=== PATIENT | male | born 1995 | race Caucasian/White ===

== ENCOUNTER 2016-08-28 07:44 | Emergency (ER) | payer MEDICAID ==
[~2016-08-28] VITALS: Ht 172.7 cm; Wt 54.4 kg
[2016-08-28] MEDS ORDERED: ONDANSETRON 4MG ODT PO STA (08:09)
[2016-08-28 08:45] LABS: CLARITY URINE TURBID (CLEAR); COLOR URINE YELLOW (YELLOW); GLUCOSE URINE NEGATIVE (NEGATIVE); KETONES URINE NEGATIVE (NEGATIVE); LEUKOCYTE ESTERASE URINE 3+ (NEGATIVE); NITRITE URINE NEGATIVE (NEGATIVE); OCCULT BLOOD URINE 1+ (NEGATIVE); PH URINE 6.5 (4.5-8.0); PROTEIN URINE 1+ (NEGATIVE); SPECIFIC GRAVITY URINE 1.014 (1.005-1.030)
[2016-08-28 08:50] LABS: BASOPHILS % 0.4 % (0.0-2.0); EOSINOPHILS % 0.3 % (0.0-5.0); LYMPHOCYTES % 10.5 % (20.0-50.0); MEAN CORPUSCULAR HEMOGLOBIN 16.5 pg (28.0-32.0); MEAN CORPUSCULAR HGB CONC 27.8 g/dL (31.0-37.0); MEAN CORPUSCULAR VOLUME 59.3 fL (80.0-94.0); MEAN PLATELET VOLUME 6.8 fl (7.4-10.4); MONOCYTES % 8.8 % (2.0-8.0); PLATELET 688 x1000/uL (130-400); RED BLOOD CELL COUNT 3.44 mill/uL (4.7-6.1); RED CELL DISTRIBUTION WIDTH 21.5 % (11.6-14.6); WHITE BLOOD COUNT 11.9 x1000/uL (4.5-11.0)
[2016-08-28 08:53] LABS: CHLORIDE 103 mEq/L (98-107); INDEX HEMOLYSI 1 (1-3); INDEX ICTERIC 1 (1-4); INDEX LIPEMIC 1 (1-3)
[2016-08-28 08:55] LABS: INR 1.1; PROTHROMBIN TIME 11.6 sec
[2016-08-28 08:58] LABS: ALBUMIN 2.3 g/dL (3.4-5.0); ANION GAP 10; CALCIUM 8.4 mg/dL (8.5-10.1); CARBON DIOXIDE 28 mEq/L (21-32); LIPASE 58 IU/L (73-393); UREA NITROGEN BLOOD 18 mg/dL (7-21)
[2016-08-28 09:01] LABS: SQUAMOUS EPITHELIAL CELL URINE RARE /lpf (RARE/1+); WBC URINE TNTC /hpf (0-2)
[2016-08-28 09:01] LABS: ALANINE AMINOTRANSFERASE 25 IU/L (13-61); ETHANOL BLOOD < 10 mg/dL; eGFR > 60 mL/min (>60)
[2016-08-28 09:02] LABS: BACTERIA URINE 4+; RBC URINE 0-2 /hpf (0-2)
[2016-08-28 09:04] LABS: ACETAMINOPHEN < 2 ug/mL (10-30); ADD RBC MORPHOLOGY YES; DIFFERENTIAL COMMENT 1; HEMATOCRIT. 20.4 % (42.0-52.0); HEMOGLOBIN. 5.7 g/dL (14.0-18.0)
[2016-08-28 09:05] LABS: *AMPHETAMINES SCREEN URINE PRESUMTIVE POSITIVE (NEGATIVE); *BARBITURATES SCREEN URINE NEGATIVE (NEGATIVE); *BENZODIAZEPINES SCREEN URINE NEGATIVE (NEGATIVE); *COCAINE SCREEN URINE PRESUMTIVE POSITIVE (NEGATIVE); CANNABINOID URINE SCREEN PRESUMTIVE POSITIVE (NEGATIVE); ECSTASY MDMA SCREEN URINE NEGATIVE (NEGATIVE); METHADONE URINE SCREEN NEGATIVE (NEGATIVE); OPIATES URINE SCREEN NEGATIVE (NEGATIVE); PHENCYCLIDINE URINE SCREEN NEGATIVE (NEGATIVE)
[2016-08-28 09:26] LABS: BASOPHILS % 0.6 % (0.0-2.0); EOSINOPHILS % 0.4 % (0.0-5.0); LYMPHOCYTES % 10.9 % (20.0-50.0); MEAN CORPUSCULAR HEMOGLOBIN 17.1 pg (28.0-32.0); MEAN CORPUSCULAR HGB CONC 28.8 g/dL (31.0-37.0); MEAN CORPUSCULAR VOLUME 59.4 fL (80.0-94.0); MEAN PLATELET VOLUME 7.3 fl (7.4-10.4); MONOCYTES % 8.2 % (2.0-8.0); NEUTROPHILS % 79.9 % (40.0-76.0); PLATELET 638 x1000/uL (130-400); RED CELL DISTRIBUTION WIDTH 21.3 % (11.6-14.6); WHITE BLOOD COUNT 12.1 x1000/uL (4.5-11.0)
[2016-08-28 09:28] LABS: HYPOCHROMASIA 2+; PLATELET ESTIMATE INCREASED
[2016-08-28 09:29] LABS: ANISOCYTOSIS 3+
[2016-08-28 09:29] LABS: DIFFERENTIAL COMMENT 1; HEMOGLOBIN. 5.5 g/dL (14.0-18.0)
[2016-08-28] MEDS ORDERED: MORPHINE SULFATE 4 MG/ML CPJ (NOT FOR IM USE) IV STA (09:45)
[2016-08-28] MEDS ORDERED: ONDANSETRON HCL 4MG/2ML VIAL IV STA (09:45)
[2016-08-28] MEDS ORDERED: SODIUM CHLORIDE 0.9% 10ML VIAL ONE (11:53)
[2016-08-28] MEDS ORDERED: IOHEXOL-300 100 ML BOTTLE ONE (11:53)
[2016-08-28] MEDS ORDERED: VANCOMYCIN 1 G PREMIX 200 ML IV ONE (12:00)
[2016-08-28 17:36] VITALS: BP 117/74
== END 2016-08-28 18:14 | disposition short-term general hospital (02) ==
LOC: ER 07:54
DX: L89.159 Pressure ulcer of sacral region, unspecified stage (principal); M86.8X8 Other osteomyelitis, other site
CPT/HCPCS: 36415; 74177; 80053; 80305; 80307; 80329; 81001; 83690; 85025; 85610; 87040; 96365; 99285; A4216; G0482; J3370; Q0162; Q9967; Z7610; J2270; J2405